=== PATIENT | female | born 1960 | race Caucasian/White ===

== ENCOUNTER 2023-08-27 08:57 | Inpatient (IN) | payer BC ==
[~2023-08-27] VITALS: Ht 170.2 cm; Wt 69.1 kg
[2023-10-26] VITALS (19 sets, daily range): BP systolic 134–181; BP diastolic 65–94; PULSE 67–98; TEMP 97.3–98.1
[2023-10-26] MEDS ORDERED: Celecoxib 200 MG CAP PO SCH (05:00)
[2023-10-26] MEDS ORDERED: OXYCODONE 10 MG PO SCH (05:00)
[2023-10-26] MEDS ORDERED: LR 1,000 ML IV SCH (05:00)
[2023-10-26] MEDS ORDERED: Acetaminophen 500 MG TAB PO SCH ×2 (05:00→14:00)
[2023-10-26] MEDS ORDERED: Pregabalin 150 MG CAP PO SCH (05:00)
[2023-10-26] MEDS ORDERED: Rocuronium 50 MG/5 ML Multi-Dose VIAL ONE (06:38)
[2023-10-26] MEDS ORDERED: fentaNYL 50 MCG/ML 2 ML VIAL ONE (06:38)
[2023-10-26] MEDS ORDERED: Succinylcholine PF 200 MG/10 ML SYRINGE IV ONE (06:38)
[2023-10-26] MEDS ORDERED: Glycopyrrolate 0.2 MG/ML 1 ML VIAL ONE (06:40)
[2023-10-26] MEDS ORDERED: NS 10 ML IV ONE (06:40)
[2023-10-26] MEDS ORDERED: Ondansetron 4 MG/2 ML VIAL ONE (06:40)
[2023-10-26] MEDS ORDERED: Phenylephrine 10 MG/ML VIAL ONE (06:40)
[2023-10-26] MEDS ORDERED: dexAMETHasone 10 MG/ML VIAL ONE (06:40)
[2023-10-26] MEDS ORDERED: PROGRAF 0.5MG0.5 MG PO (06:48)
[2023-10-26] MEDS ORDERED: CELLCEPT 250MG250 MG PO (06:49)
[2023-10-26] MEDS ORDERED: PRAVACHOL 40MG40 MG PO (06:50)
[2023-10-26] MEDS ORDERED: SYNTHROID0.112 MG/T PO (06:50)
[2023-10-26] MEDS ORDERED: PRIL40 PO (06:50)
[2023-10-26] MEDS ORDERED: ZYLOPRIM 300MG300 MG PO (06:51)
[2023-10-26] MEDS ORDERED: ASPIRIN 81M81 MG/TA2 PO (06:52)
[2023-10-26] MEDS ORDERED: PROCARDIA10 MG PO (06:53)
[2023-10-26] MEDS ORDERED: CLARITIN 1010 MG/TAB PO (06:54)
[2023-10-26] MEDS ORDERED: TYLENOL 500MG500 MG PO (06:55)
[2023-10-26] MEDS ORDERED: VITAMIN B12 781 TAB PO (06:56)
[2023-10-26] MEDS ORDERED: PHOSLO667 MG PO (06:57)
[2023-10-26] MEDS ORDERED: RT ADVAIR 228 DISKUS IH (06:58)
[2023-10-26 07:05] LABS: BASO % 0.5 % (0.0-2.0); EOS # 0.1 K/mm3 (0.0-0.7); EOS % 2.1 % (0.0-4.0); GRAN % 68.8 % (42.2-75.2); HEMATOCRIT 28.7 % (37.0-47.0); HEMOGLOBIN 9.2 g/dl (12.5-16.0); LYMPH # 1.2 K/mm3 (1.2-3.4); LYMPH % 20.2 % (20.0-51.0); MEAN CELL VOLUME 93 fl (80.0-100.0); MEAN CORPUSCULAR HEMOGLOBIN 30 pg (27-31); MEAN CORPUSCULAR HGB CONC 32 g/dl (33.0-37.0); MEAN PLATELET VOLUME 8.6 fl (7.4-10.4); MONO # 0.5 K/mm3 (0.1-0.6); MONO % 8.1 % (1.7-9.3); PLATELET COUNT 213 K/mm3 (130-400); REDCELL DISTRIBUTION WIDTH-CV 14.9 % (11.5-14.5)
[2023-10-26 07:36] LABS: BILIRUBIN,TOTAL 0.4 mg/dL (0.2-1.2); CREATININE, serum 3.78 mg/dL (0.57-1.11); POTASSIUM 4.1 mEq/L (3.5-4.5); TOTAL PROTEIN 7.3 g/dl (6.2-8.1)
[2023-10-26] MEDS ORDERED: Tranexamic Acid 1,000 MG/10 ML VIAL ONE ×2 (07:57→07:58)
[2023-10-26] MEDS ORDERED: Topical Skin Adhesive 1 EACH (1 ML) TOP ONE (08:09)
[2023-10-26] MEDS ORDERED: Lidocaine PF 2% (20 MG/ML) 5 ML VIAL ONE (08:24)
[2023-10-26] MEDS ORDERED: fentaNYL 50 MCG/ML 1 ML SYRINGE/VIAL [PACU/SDC ONLY] IV PRN (08:45)
[2023-10-26] MEDS ORDERED: Ondansetron 4 MG/2 ML VIAL IV PRN ×2 (08:45→09:15)
[2023-10-26] MEDS ORDERED: Naloxone 0.4 MG/ML VIAL IV PRN (09:15)
[2023-10-26] MEDS ORDERED: oxyCODONE 5 MG TAB PO PRN (09:15)
--- NOTE | 2023-10-26 10:30 | NUR ---
pt admitted to room from PACU, family at bedside. pt a&ox4. pain rated a 3/10 just above the knee cap. dressing to right knee is cdi. teds and scds to ble. pt on 2L nasal cannula. med rec and admission assessment complete. pt oriented to room. call light in reach. no needs at this time.
--- NOTE | 2023-10-26 11:18 | NUR ---
Social work student met with patient to discuss discharge planning. Patient lives in [place] with Mario (ph# [phone]) and sees Dr. Bibi Blackman for primary care. Patient uses [facility] in [place]. Primary insurance is [employer] and secondary insurance is Medicare A and B starting August 25. Patient does not have card yet. Patient uses CPAP and is independent with ADLS. Patient is currently working on completing DPOA outside of hospital. Patient is going to appoint Mario as DPOA once finalized. Patient has outpatient PT scheduled at [facility] and plans to return home at time of discharge. Discharge plan: home
--- NOTE | 2023-10-26 13:39 | NUR ---
pt experienced emesis, zofran given per emar. BP elevated, Lynnette MORRELL notified. pt reports feeling "fine"
[2023-10-26] MEDS ORDERED: Morphine 4 MG/ML VIAL IV PRN (14:30)
[2023-10-26] MEDS ORDERED: hydrALAZINE 10 MG TAB PO PRN (14:30)
[2023-10-26] MEDS ORDERED: Heparin 1,000 UNITS/ML 10 ML Multi-Dose VIAL IV SCH (15:15)
[2023-10-26] MEDS ORDERED: Heparin 1,000 UNITS/ML 10 ML Multi-Dose VIAL ICA SCH (15:15)
[2023-10-26] MEDS ORDERED: Calcium Acetate 667 MG TAB/CAP PO SCH (17:00)
[2023-10-26] MEDS ORDERED: ceFAZolin 1 G in Water For Injection,Sterile 10 ML IV SCH (18:00)
[2023-10-26] MEDS ORDERED: Formoterol 20 MCG,Budesonide 0.5 MG IH SCH (19:00)
[2023-10-26] MEDS ORDERED: Pravastatin 20 MG TAB PO SCH (21:00)
[2023-10-26] MEDS ORDERED: Apixaban 2.5 MG TABLET PO SCH ×2 (21:00)
[2023-10-26] MEDS ORDERED: Tacrolimus 1 MG CAP PO SCH (21:00)
[2023-10-26] MEDS ORDERED: Mycophenolate 250 MG CAP PO SCH (21:00)
[2023-10-26] MEDS ORDERED: NIFEdipine 10 MG CAP PO SCH (21:00)
[2023-10-26] MEDS ORDERED: Sennosides/Docusate 8.6-50 MG TAB PO SCH (21:00)
--- NOTE | 2023-10-26 21:30 | NUR ---
PT A&O X4 LAYING IN BED. HS ORTHOSTATIC BP COMPLETED, SEE CHART. DRSG TO RT KNEE IS CDI. PT RATING PAIN /10, GAVE SCHEDULED TYLENOL & ICE PACK. DENYING N/V. DIALYSIS CATH TO RT CHEST, DRSG CDI. BLE SCD & TEDS ON. PT DENYING OTHER NEEDS. CALL LIGHT IN REACH
[2023-10-27] VITALS (10 sets, daily range): BP systolic 120–186; BP diastolic 66–92; PULSE 73–96; TEMP 97.8–98.9
--- NOTE | 2023-10-27 04:08 | NUR ---
PT RATING PAIN TO RT KNEE 11/03, GAVE PRN OXYCODONE PER MAR & ICEPACK. DENIES OTHER NEEDS. CALL LIGHT IN REACH
[2023-10-27 07:05] LABS: HEMATOCRIT 23.5 % (37.0-47.0); HEMOGLOBIN 7.5 g/dl (12.5-16.0)
--- NOTE | 2023-10-27 07:30 | NUR ---
pt a&ox4 resting in bed waiting for breakfast. vss. pt to have dialysis this morning at 0800, medications held. teds and scds to ble. aqaucell dressing is cdi to right knee. ice pack in place and helps provide pain relief. pt rates pain a 3/10. no needs at this time. call light in reach.
[2023-10-27] MEDS ORDERED: Tacrolimus 0.5 MG CAP PO SCH (09:00)
[2023-10-27] MEDS ORDERED: Allopurinol 300 MG TAB PO SCH (09:00)
--- NOTE | 2023-10-27 10:25 | NUR ---
pt transferred by wheelchair to dialysis.
--- NOTE | 2023-10-27 14:00 | NUR ---
pt back in room from dialysis. pt had episode of hypotension when stood up from dialysis. transferred by chair. pt reports feeling better once back in room. vitals are stable.
--- NOTE | 2023-10-27 23:25 | NUR ---
patient lying in bed, alert and oriented x4. denies chest pain and shortness of breath. IV in RF is patent, site is CDi. right chest HD catheter, right knee aquacell dressing both CDI. pt refused prn hydralazine for elevated BP at this time, already getting a dose of procardia. pt has no further needs, questions or concerns at this time. ambulate with steady but weak gait to bathroom and back in bed x1 assist and walker. ice applied to right knee, pillow under leg for elevation. fall precautions in place, call light within reach. will continue to monitor.
[2023-10-28] VITALS: BP 152/68; PULSE 93; TEMP 98.9
[2023-10-28 00:15] VITALS: BP_SYST 152
[2023-10-28 04:00] VITALS: BP 167/87; PULSE 83; TEMP 98.2
[2023-10-28 06:16] VITALS: BP_SYST 167
[2023-10-28 06:52] LABS: HEMATOCRIT 26.5 % (37.0-47.0); HEMOGLOBIN 8.4 g/dl (12.5-16.0)
[2023-10-28 07:02] VITALS: BP 183/88; PULSE 83; TEMP 98.4
[2023-10-28 07:10] LABS: CALCIUM 8.1 mg/dL (8.4-10.2); CREATININE, serum 3.22 mg/dL (0.57-1.11); POTASSIUM 4.7 mEq/L (3.5-4.5)
[2023-10-28 09:00] VITALS: BP_SYST 183
[2023-10-28] MEDS ORDERED: Loratadine 10 MG TAB PO SCH (09:00)
--- NOTE | 2023-10-28 09:15 | NUR ---
Pt. sitting up in bed. Pt. is A&OX3, assessment complete. INT to rt. forearm patent. Pt. reports pain at a 5 on pain scale, will give meds per orders. Dressing to rt. knee CDI. Pt. denies further needs, call light within reach.
--- NOTE | 2023-10-28 11:05 | NUR ---
tray service worker was notifed of patients discharge today. Social work student faxed discharge orders and physical therapy notes to [facility]. Discharge plan: home with outpatient physical therapy
--- NOTE | 2023-10-28 11:10 | NUR ---
Pt. ready for discharge. INT discontinued. Reviewed and gave discharge packet to the pt. Pt. voices understanding. Pt. dressed and escorted out.
== END 2023-10-28 11:20 | disposition home or self-care (01) | DRG 469 ==
LOC: INPTSU 10-26 05:44 → SURG 10-26 07:30
PROVIDERS: Nurse Anesthetist, Certified Registered; ADMIT Orthopaedic Surgery
PROC: 0SRC0J9 Replacement of Right Knee Joint with Synthetic Substitute, Cemented, Open Approach (ICD-10-PCS; principal; 2023-10-26 07:30)
DX: M17.11 Unilateral primary osteoarthritis, right knee (principal); N18.6 End stage renal disease; Z94.0 Kidney transplant status; Z99.2 Dependence on renal dialysis; D64.9 Anemia, unspecified; E03.9 Hypothyroidism, unspecified; E78.5 Hyperlipidemia, unspecified; K21.9 Gastro-esophageal reflux disease without esophagitis; Z86.718 Personal history of other venous thrombosis and embolism
CPT/HCPCS: A9284; C1713; C1776; J0665; J0690; J1100; J2270; J2371; J2405; J2704; J2795; J3010; J7120; J7507; J7517; Q3014